=== PATIENT | female | born 1975 | race Two or more races ===

== ENCOUNTER 2018-11-13 15:19 | Emergency (ER) | payer OTHER ==
[~2018-11-13] VITALS: Ht 172.7 cm; Wt 70.3 kg
[2018-11-13] MEDS ORDERED: [UNRECOGNIZED DRUG - OTHER] (15:51)
[2018-11-13] MEDS ORDERED: PROAIR HFA8.5 GM (15:52)
== END 2018-11-13 19:11 | disposition home or self-care (01) ==
LOC: ER 15:19
DX: B34.9 Viral infection, unspecified (principal)